=== PATIENT | female | born 1970 | race Caucasian/White ===

== ENCOUNTER 2017-05-03 18:17 | Emergency (ER) | payer BC ==
--- NOTE | 2017-05-03 20:45 | UC ---
UC General HPI - HPI Summary HPI Summary: 46yo WF h/o B12 deficiency c/o sudden left neck and left arm pain w/o weakness. Has some baseline intermittent paresthesias due to her B12 deficiency but denies CP, SOB , HORVATH, visual changes, recent URI, Flu, abd pain or urinary problems. Pt has had recent work-up for her B12 deficiency but does not know the results of her full work up but does state that her B12 injections became more frequent- went from 2x/month to every 10days - History of Current Complaint Chief Complaint: UCUpperExtremity Stated Complaint: NECK, SHOULDER, AND ARM PAIN Time Seen by Provider: 05/03/17 20:05 Hx Obtained From: Patient Hx From Patient Unobtainable Due To: Other Onset/Duration: Sudden Onset, Still Present Onset Severity: Moderate Current Severity: Mild Pain Intensity: 8 - Allergy/Home Medications Allergies/Adverse Reactions: Allergies Allergy/AdvReac Type Severity Reaction Status Date / Time No Known Allergies Allergy Verified 05/03/17 18:58 Home Medications: Home Medications B12/Levomefolate Calcium/B-6 [Fztci-Uuudwjtfrc-Poucjwrje Tb] 1 tab PO DAILY [History Confirmed 05/03/17] Cholecalciferol (Vitamin D3) [D3-2000] 2,000 unit PO DAILY 05/03/17 [History Confirmed 05/03/17] Montelukast Sodium TAB* [Singulair 10 MG TAB*] 10 mg PO DAILY 05/03/17 [History Confirmed 05/03/17] Norethindr/Eth Estradiol(Nf) [Lo Loestrin Fe (NF)] 1 tab PO DAILY 05/03/17 [ History Confirmed 05/03/17] Kent-3 Fatty Acids/Fish Oil [Fish Oil 1,000 mg Capsule] 1,000 mg PO DAILY 05/03 [History Confirmed 05/03/17] PMH/Surg Hx/FS Hx/Imm Hx - Additional Past Medical History Additional PMH: B12 deficiency - Surgical History Surgical History: Yes Surgery Procedure, Year, and Place: csections - Social History Alcohol Use: Occasionally Substance Use Type: None Smoking Status (MU): Never Smoked Tobacco Review of Systems Constitutional: Negative Skin: Negative Eyes: Negative ENT: Negative Respiratory: Negative Cardiovascular: Negative Gastrointestinal: Negative Genitourinary: Negative Motor: Negative Neurovascular: Negative Musculoskeletal: Other: - left neck pain and R arm pain Neurological: Negative Psychological: Negative Is Patient Immunocompromised?: No All Other Systems Reviewed And Are Negative: Yes Physical Exam Triage Information Reviewed: Yes Vital Signs: Initial Vital Signs Temp 36.7 C 05/03/17 18:53 Pulse 72 05/03/17 18:53 Resp 18 05/03/17 18:53 BP 140/97 05/03/17 18:53 Pulse Ox 100 05/03/17 18:53 Eye Exam: Normal ENT Exam: Normal Dental Exam: Normal Neck exam: Normal Neck: Positive: Tenderness @ - TTP to left neck- left capitis splenius region Respiratory Exam: Normal Respiratory: Positive: Lungs clear Cardiovascular Exam: Normal Abdominal Exam: Normal Musculoskeletal: Positive: Strength Intact, ROM Intact Neurological Exam: Normal - Cn 2-12 grossly intact, No facial asymmetry, Neg pronator drift, Neg dysdiadochokinesis. UE/LE strength 5/5, no sensory or motor deficits Neurological: Positive: Alert Psychological Exam: Normal Skin Exam: Normal Course/Dx - Course Course Of Treatment: EKG- sinus bradycardia @54, no STT changes or TWI. BS - 97. Head CT neg. UA-Neg. Rapid flu neg. Current complaints NOT c/w any acute etiology-e.g.- TIA, CVA, Acute infectious etiology. Advised to f/u w/ internal audit senior manager and r/o pernicious anemia and other B12 pathway deficiencies. Elevated BP w/o dx of HTN- ot will f/u with her PCP - Differential Dx - Multi-Symptom Provider Diagnoses: B12 deficiency. Left neck pain. elevated BP w/o dx of HTN Discharge - Discharge Plan Condition: Stable Disposition: HOME Patient Education Materials: Vitamin B12 Deficiency (ED) Referrals: Jhon GEE,Kimberlyn Lopez [Primary Care Provider] - Additional Instructions: please follow up with your internal audit senior manager parrish
--- NOTE | 2017-05-03 21:05 | RAD ---
INDICATION: Confusion COMPARISON: None TECHNIQUE: Noncontrast axial source images were acquired from the skull base to the vertex. FINDINGS: Ventricles/sulci: The ventricles and cisterns are normal in size and configuration for age. Brain parenchyma: There is no focal parenchymal finding, evidence of intracranial mass, or intracranial mass effect. Intracranial hemorrhage:None. Extra-axial spaces: There are no abnormal extra axial fluid collections or evidence of extra-axial mass. Calvarium: There is no calvarial fracture or other calvarial abnormality. Scalp: There is no evidence of scalp or extracalvarial soft tissue abnormality. Paranasal sinuses/mastoid: The paranasal sinuses and mastoid air cells are clear. Other: None. IMPRESSION: NEGATIVE EXAMINATION
[2017-05-03 21:42] VITALS: BP 118/81
== END 2017-05-03 21:50 | disposition home or self-care (01) ==
LOC: UCEAST 18:17
DX: M54.2 Cervicalgia (principal); R03.0 Elevated blood-pressure reading, without diagnosis of hypertension; R00.1 Bradycardia, unspecified; E53.8 Deficiency of other specified B group vitamins
CPT/HCPCS: 70450; 81003; 87502; 93005; 99212; G0463